=== PATIENT | female | born 1995 | race Caucasian/White ===

== ENCOUNTER → 2018-06-30 13:08 | Observation (INO) ==
[2018-06-30 10:32] LABS: Bilirubin,Urine Moderate (Negative); Blood,Urine Negative (Negative); Clarity,Urine Cloudy (Clear); Glucose,Urine (UA) Normal (Normal); Ketones,Urine 80 mg/dL (Negative); Leukocyte Esterase,Urine Moderate (Negative); Nitrite,Urine Positive (Negative); Protein,Urine 100 mg/dL (Neg-Trace); Specific Gravity,Urine 1.027 (1.010-1.025)
[2018-06-30 10:35] LABS: Bacteria,Urine Moderate per hpf (None-Few); Squamous Epithelial Cell,Urine Many per lpf (None-Few); WBC,Urine 15-30 per hpf (0-3)
[2018-06-30 10:36] LABS: Color,Urine Orange (Yellow)
[2018-06-30 10:45] LABS: Amphetamine Screen,Urine Negative ng/mL (Cutoff=1000); Barbiturate Screen,Urine Negative ng/mL (Cutoff=200); Benzodiazepines Screen,Urine Negative ng/mL (Cutoff=200); Cannabinoid Screen,Urine Negative ng/mL (Cutoff = 50); Cocaine Screen,Urine Negative ng/mL (Cutoff= 300); Opiate Screen,Urine Negative ng/mL (Cutoff=300); Phencyclidine Screen,Urine Negative ng/mL (Cutoff=25)
[2018-06-30 11:19] LABS: Basophils % 0.3 %; Eosinophils % 0.2 %; Hematocrit 33.6 % (35.3-44.9); Hemoglobin 11.1 g/dL (11.5-15.4); Immature Granulocytes % 4.9 % (0-4); Lymphocytes # 0.5 K/mcL (0.6-4.6); Lymphocytes % 7.8 %; Mean Corpuscular Hemoglobin 29.6 pg (28.0-33.3); Mean Corpuscular Volume 89.6 fL (83.0-100.0); Mean Platelet Volume 9.8 fL (9.4-12.4); Monocytes # 0.3 K/mcL (0.0-1.3); Monocytes % 5.7 %; Neutrophils # 4.8 K/mcL (1.6-8.9); Platelet Count 138 K/mcL (140-400); Red Blood Count 3.75 M/mcL (3.82-4.97); Red Cell Distribution Width 13.5 % (11.5-14.5); Segmented Neutrophils % 81.1 %
--- NOTE | 2018-06-30 11:22 | OB/GYN Progress Note ---
Date of Encounter: 06/30/18 Time of Encounter: 11:18 - Assessment and Plan (1) 24 weeks gestation of Current Visit: Yes Status: Acute admitted for observation for UTI symptoms and nausea and vomiting. (2) UTI (urinary tract infection) in in second trimester Current Visit: Yes Status: Acute IV antibiotics CBC pending (3) Dehydration during Current Visit: Yes Status: Acute IV hydration Subjective - Subjective Principal diagnosis: Bilateral back pain, nausea and vomiting Interval history: Patient is a 22 y/o at 24w4d presents to labor and delivery with complaints of low back pain, nausea and vomiting. Patient reports she feels like she has a UTI and has been taking AZO. Patient denies contractions, LOF or VB. Patient reports she has felt like she had a fever for the past 2 days but has not taken a temperature. Patient has tried taking tylenol but she was unable to keep it down due to nausea and vomiting. Patient reports +FM. Patient has been admitted to hospital for Kidney infections in the past and states this feels the same. Patient denies urinary hesitancy but reports frequency. Patient reports dysuria is better with AZO. Antepartum ROS: movement normal, no loss of fluid, no vaginal bleeding, no contractions Objective - Vital Signs Vital Signs: Intake and Output 06/29/18 06/30/18 06/30/18 23:59 07:59 15:59 Other: Weight 62.959 kg Patient Weight 06/30/18 23:59 Weight 62.959 kg - Exam FHR: auscultation normal FHR comments: FHR 135 bpm moderate variability appropriate for gestational age. No contractions noted. Auscultation: bilateral: normal Abdomen: Present: normal appearance, soft, gravid Uterus: Present: normal Comments: CVA tenderness noted on exam. - Labs Labs: Abnormal lab results Urine Color [place] (Yellow) A 06/30/18 09:08 Urine Clarity Cloudy (Clear) A 06/30/18 09:08 Ur Specific [place] 1.027 (1.010-1.025) H 06/30/18 09:08 Urine Protein 100 mg/dL (Neg-Trace) H 06/30/18 09:08 Urine Ketones 80 mg/dL (Negative) H 06/30/18 09:08 Urine Nitrite Positive (Negative) A 06/30/18 09:08 Urine Bilirubin Moderate (Negative) H 06/30/18 09:08 Urine Urobilinogen 2.0 mg/dL (Normal) H 06/30/18 09:08 Ur Leukocyte Esterase Moderate (Negative) H 06/30/18 09:08 Urine Microscopic RBC 3-5 per hpf (0-3) H 06/30/18 09:08 Urine Microscopic WBC 15-30 per hpf (0-3) H 06/30/18 09:08 Ur Squamous Epith Cells Many per lpf (None-Few) H 06/30/18 09:08 Urine Bacteria Moderate per hpf (None-Few) H 06/30/18 09:08 Ur Culture Indicated? NO. (NO) A 06/30/18 09:08
[~2018-06-30 13:08] MED LIST: Acetaminophen 325 MG TABLET PO PRN; Ondansetron 4 MG/2 ML VIAL IVP PRN; Ondansetron 4 MG/2 ML VIAL ONE; Ringers Solution, Lactated 1,000 ML IVC SCH; Ringers Solution, Lactated 1,000 ML ONE; cefTRIAXone 2,000 MG in Water for inj. (sterile) 20 ML 20 ML IVP ONE
== END | disposition home or self-care (01) ==
LOC: 1NENULAB
PROVIDERS: ADMIT Obstetrics & Gynecology; ATTEND Obstetrics & Gynecology